=== PATIENT | female | born 1955 | race African-American/Black ===

== ENCOUNTER 2017-04-26 06:52 | Emergency (ER) | payer SELFPAY ==
[2017-04-26] MEDS ORDERED: predniSONE 20 MG TAB ONE (07:21)
[2017-04-26] MEDS ORDERED: Famotidine 20 MG TAB ONE (07:21)
== END 2017-04-26 07:29 | disposition home or self-care (01) ==
LOC: NAV ERS 06:52
DX: L25.3 Unspecified contact dermatitis due to other chemical products (principal); I10 Essential (primary) hypertension; F17.210 Nicotine dependence, cigarettes, uncomplicated; Z79.899 Other long term (current) drug therapy
CPT/HCPCS: 99282; J7506